=== PATIENT | female | born 1970 | race Caucasian/White ===

== ENCOUNTER → 2021-10-15 | Outpatient (CLI) | payer BC, OTHER, SELFPAY ==
--- NOTE | 2021-10-15 11:41 | REP ---
INDICATION: LT SIDE NECK LUMP COMPARISON: None. TECHNIQUE: Limited directed ultrasound examination using B-mode technique with linear high-frequency transducer FINDINGS: Directed ultrasound examination along the left side of the neck overlying the patient's palpable mass demonstrates a single solitary relatively normal appearing lymph node with central vascular fatty hilum measuring 10 x 5 x 6 mm. No abnormal fluid collection or further mass lesion identified. IMPRESSION: Finding consistent with small relatively normal appearing lymph node by ultrasound examination. <Electronically signed by Kael De La Torre > 10/15/21 [id number]
== END ==
LOC: M RAD 10:58
PROVIDERS: ATTEND Family Medicine
DX: Z12.31 Encounter for screening mammogram for malignant neoplasm of breast (principal)

== ENCOUNTER → 2021-12-08 | Outpatient (CLI) | payer BC | LOC: M WHC 07:45 | PROVIDERS: ATTEND Family Medicine | DX: Z12.31 Encounter for screening mammogram for malignant neoplasm of breast (principal) ==

== ENCOUNTER → 2023-02-22 | Outpatient (CLI) | payer BC | LOC: M WHC 12:40 | PROVIDERS: ATTEND Nurse Practitioner Family | DX: Z12.31 Encounter for screening mammogram for malignant neoplasm of breast (principal) ==

== ENCOUNTER → 2023-12-23 | Outpatient (CLI) | payer BC | LOC: M WHC 13:05 | PROVIDERS: ATTEND Nurse Practitioner Family | DX: Z12.31 Encounter for screening mammogram for malignant neoplasm of breast (principal) ==

== ENCOUNTER → 2024-07-04 | Outpatient (CLI) | payer BC | LOC: M WHC 10:01 | PROVIDERS: ATTEND Obstetrics & Gynecology | DX: N63.11 Unspecified lump in the right breast, upper outer quadrant (principal) ==

== ENCOUNTER 2025-02-08 19:26 | Emergency (ER) | payer BC ==
[~2025-02-08] VITALS: Ht 165.1 cm; Wt 69.9 kg
[2025-02-08 19:28] VITALS: TEMP 97.2
[2025-02-08 20:14] LABS: BASO # 0.1 10^3/uL (0.0-0.2); BASO % 1.5 % (0.0-1.0); EOS # 0.4 10^3/uL (0.0-0.5); EOS % 6.6 % (0.0-3.0); HEMATOCRIT 42.3 % (36.0-47.0); HEMOGLOBIN 14.2 g/dl (12.0-15.5); LYMPH # 2.7 10^3/uL (1.5-5.0); LYMPH % 45.5 % (24.0-44.0); MEAN CORPUSCULAR HEMOGLOBIN 31.3 pg (27.0-33.0); MEAN CORPUSCULAR HGB CONC 33.6 g/dl (32.0-36.5); MEAN CORPUSCULAR VOLUME 93.4 fl (80.0-96.0); MONO # 0.6 10^3/uL (0.0-0.8); MONO % 9.6 % (2.0-8.0); NEUTROPHILS # 2.2 10^3/uL (1.5-8.5); NEUTROPHILS % 36.5 % (36.0-66.0); PLATELET COUNT, AUTOMATED 223 10^3/uL (150-450); RED BLOOD COUNT 4.53 10^6/uL (4.00-5.40); WHITE BLOOD COUNT 5.9 10^3/uL (4.0-10.0)
[2025-02-08 20:35] LABS: CK-MB VALUE MASS < 1.0 NG/ML (<3.6)
[2025-02-08 20:36] LABS: BLOOD UREA NITROGEN 10 MG/DL (9-23); CARBON DIOXIDE LEVEL 26 MMOL/L (20-31); CHLORIDE LEVEL 106 MMOL/L (98-107); CPK CREATINE PHOSPHOKINASE 91 U/L (34-145); CREATININE FOR GFR 0.67 MG/DL (0.55-1.30); GLOMERULAR FILTRATION RATE > 90.0 (>51); GLUCOSE, FASTING 95 MG/DL (60-100); MB/CK RELATIVE INDEX 1.09 (< OR =4); POTASSIUM SERUM 3.5 MMOL/L (3.5-5.1); SODIUM LEVEL 142 MMOL/L (136-145)
[2025-02-08] MEDS ORDERED: ISOVUE-370 76% 100ML VIAL As Ordered ONE (22:10)
[2025-02-08 22:23] LABS: ALBUMIN 4.1 G/DL (3.2-5.2); ALKALINE PHOSPHATASE 66 U/L (35-104); ALT/SGPT 85 U/L (7.0-40); AST/SGOT 132 U/L (<34); BILIRUBIN,DIRECT 0.1 MG/DL (<0.4); BILIRUBIN,TOTAL 0.3 MG/DL (0.3-1.2); TOTAL PROTEIN 6.9 G/DL (5.7-8.2)
[2025-02-08] MEDS: PANTOPRAZOLE 40MG VIAL IV ONE (22:32)
[2025-02-08] MEDS: ASPIRIN 81MG CHEW TABLET PO ONE (22:32)
[2025-02-08 22:35] LABS: CK-MB VALUE MASS < 1.0 NG/ML (<3.6)
[2025-02-08 22:40] LABS: CPK CREATINE PHOSPHOKINASE 78 U/L (34-145); MB/CK RELATIVE INDEX 1.28 (< OR =4)
[2025-02-08] MEDS ORDERED: PANT40TA29 PO (23:44)
[2025-02-08 23:45] VITALS: BP 116/70
[2025-02-08 23:46] VITALS: O2SAT 96
== END 2025-02-09 00:10 | disposition home or self-care (01) ==
LOC: M ED 19:26
DX: R07.9 Chest pain, unspecified (principal); Z87.891 Personal history of nicotine dependence; Z79.899 Other long term (current) drug therapy
CPT/HCPCS: 71046; 71275; 80048; 80076; 82550; 82553; 84484; 85025; 93005; 93041; 94760; 96374; 99285; J2470; Q9967

== ENCOUNTER → 2025-09-04 | Outpatient (CLI) | payer BC ==
[~2025-09-04] MED LIST: PANT40TA29 PO
== END ==
LOC: M WHC 08:05
PROVIDERS: ATTEND Internal Medicine Gastroenterology
DX: K80.10 Calculus of gallbladder with chronic cholecystitis without obstruction (principal)